=== PATIENT | male | born 1955 | race American Indian/Alaskan Native ===

== ENCOUNTER 2019-11-13 16:07 | Emergency (ER) | payer OTHER, MEDICARE ==
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
[2019-11-13 16:54] VITALS: BP 116/74
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
== END 2019-11-13 17:54 | disposition left against medical advice (07) ==
LOC: ED 16:07
DX: M54.5 Low back pain (principal); V49.49XA Driver injured in collision with other motor vehicles in traffic accident, initial encounter; Y93.89 Activity, other specified; Y92.481 Parking lot as the place of occurrence of the external cause; Y99.8 Other external cause status
CPT/HCPCS: 99282

== ENCOUNTER 2020-02-06 15:15 | Emergency (ER) | payer MEDICARE, OTHER ==
[2020-02-06 15:47] VITALS: BP 128/68
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
== END 2020-02-06 18:14 | disposition left against medical advice (07) ==
LOC: ED 15:15
DX: R36.9 Urethral discharge, unspecified (principal); B35.6 Tinea cruris; M54.6 Pain in thoracic spine; G89.29 Other chronic pain; Z88.8 Allergy status to other drugs, medicaments and biological substances
CPT/HCPCS: 99282

== ENCOUNTER 2020-07-25 17:31 | Emergency (ER) | payer MEDICARE ==
[2020-07-25 17:40] VITALS: BP 150/79
== END 2020-07-25 18:30 | disposition left against medical advice (07) ==
LOC: ED 17:31
DX: R36.9 Urethral discharge, unspecified (principal); L29.1 Pruritus scroti; Z53.21 Procedure and treatment not carried out due to patient leaving prior to being seen by health care provider

== ENCOUNTER 2021-07-05 16:28 | Emergency (ER) | payer MEDICARE ==
[2021-07-05] MEDS ORDERED: dexAMETHasone 20 MG/5 ML VIAL IM ONE (17:40)
--- NOTE | 2021-07-05 17:41 | Emergency Department Report ---
ED Extremity Problem HPI - General Chief complaint: Extremity Injury, Lower Stated complaint: KNEE PAIN Time Seen by Provider: 07/05/21 17:29 Source: patient Mode of arrival: Ambulatory Limitations: Physical Limitation - History of Present Illness Initial comments: 65-year-old male with a past medical history of chronic back pain, and BPH presents to the ER today with complaints of right knee pain. Patient states that has been having pain to the right posterior medial aspect of his knee. He states that he has been having this pain off and on for several months, but last week got worse to the point where he is having difficulty walking on it. He states that it also hurts with full flexion and extension. He reports associated swelling to the knee since . He states that he has been taking his usual dose of oxycodone which he takes for his chronic back pain but is not helping the pain in his knee. He states that he has mentioned his knee pain to his PCP for the past, and he states that he told her she would do an injection in the knee, but he states that the last time he saw her he was not having any pain and so it was not done. He has never seen an audiovisual production specialist for his pain. He denies any PE or DVT in the past nor does he have any risk factors for PE or DVT. He has no known history of any arthritis. He denies any associated chest pain, shortness of breath, redness to the joint, fever or chills or any additional symptoms at this time. Complaint: joint swelling, joint paint -: Gradual, month(s) - Related Data Previous Rx's Medication Instructions Recorded Last Taken Type Diclofenac 1% [Diclofenac 1% 1 applic TP QID #100 gm 07/05/21 Unknown Rx topical gel] methylPREDNISolone [Medrol 4MG 4 mg PO DAILY #1 tab.ds.pk 07/05/21 Unknown Rx DOSEPAK (21 tabs)] Allergies Allergy/AdvReac Type Severity Reaction Status Date / Time ibuprofen Allergy Unknown Verified 07/25/20 17:36 morphine AdvReac Headache Verified 11/13/19 16:24 ED Review of Systems ROS: Stated complaint: KNEE PAIN Other details as noted in HPI Comment: All other systems reviewed and negative Constitutional: denies: chills, fever Eyes: denies: eye pain, eye discharge, vision change ENT: denies: ear pain, throat pain, dental pain, hearing loss, epistaxis, congestion Respiratory: denies: cough, shortness of breath, SOB with exertion, SOB at rest, wheezing Cardiovascular: denies: chest pain, palpitations, dyspnea on exertion, edema, syncope, paroxysmal nocturnal dyspnea Endocrine: no symptoms reported Gastrointestinal: denies: abdominal pain, nausea, vomiting, diarrhea, constipation, hematemesis, melena, hematochezia Genitourinary: denies: urgency, dysuria, frequency, hematuria, discharge Musculoskeletal: joint swelling, arthralgia Skin: denies: rash, lesions, change in color, change in hair/nails, pruritus Neurological: denies: headache, weakness, numbness, paresthesias, confusion, abnormal gait, vertigo Psychiatric: denies: anxiety, depression, auditory hallucinations, visual hallucinations, homicidal thoughts, suicidal thoughts Hematological/Lymphatic: denies: easy bleeding, easy bruising, swollen glands ED Past Medical Hx - Past Medical History Previous Medical History?: Yes Hx Arthritis: Yes Hx Tuberculosis: Yes Additional medical history: Chronic back pain - Surgical History Past Surgical History?: No - Social History Smoking Status: Current Every Day Smoker Substance Use Type: Alcohol - Medications Home Medications: Home Medications Medication Instructions Recorded Confirmed Last Taken Type Diclofenac 1% [Diclofenac 1% 1 applic TP QID #100 gm 07/05/21 Unknown Rx topical gel] methylPREDNISolone [Medrol 4MG 4 mg PO DAILY #1 tab.ds.pk 07/05/21 Unknown Rx DOSEPAK (21 tabs)] ED Physical Exam - General Limitations: Physical Limitation General appearance: alert, in no apparent distress - Head Head exam: Present: atraumatic, normocephalic, normal inspection - Eye Eye exam: Present: normal appearance, PERRL, EOMI Pupils: Present: normal accommodation - Neck Neck exam: Present: normal inspection - Respiratory Respiratory exam: Present: normal lung sounds bilaterally. Absent: respiratory distress, wheezes, rales, rhonchi - Cardiovascular Cardiovascular Exam: Present: regular rate, normal rhythm, normal heart sounds - Expanded Lower Extremity Exam Right Knee exam: Present: full ROM (But there is pain with flexion extension.), tenderness (Posterior and medial aspect of the knee), full knee extension. Absent: swelling, abrasion, laceration, ecchymosis, deformity, crepidus, dislo cation, erythema, effusion Neuro vascular tendon exam: Present: no vascular compromise - Neurological Exam Neurological exam: Present: alert, oriented X3, CN II-XII intact, normal gait - Psychiatric Psychiatric exam: Present: normal affect, normal mood - Skin Skin exam: Present: intact ED Course Vital Signs 07/05/21 07/05/21 17:50 19:33 Temperature 97.9 F Pulse Rate 73 68 Respiratory 14 14 Rate Blood Pressure 120/79 118/76 [Right] O2 Sat by Pulse 98 99 Oximetry ED Medical Decision Making - Radiology Data Radiology results: report reviewed Patient: DEBI DUMONT MR#: [id number] : 1955 Acct:[id number] Age/Sex: 65 / M ADM Date: 07/05/21 Loc: ED Attending Dr: Ordering Physician: TONY ORTIZ Date of Service: 07/05/21 Procedure(s): XR knee 3V RT Accession Number(s): [id number] cc: TONY ORTIZ Fluoro Time In Minutes: RIGHT KNEE 3 VIEWS 1754 INDICATION: KNee pain COMPARISON: None available. FINDINGS: No fractures or dislocations are seen. There appears to be a dkrym-bz-toimkbyr joint effusion. Mild tricompartment degenerative changes are noted. Signer Name: Johnny Olson MD Signed: 07/05/2021 6:15 PM Workstation Name: [id number] Transcribed By: GJ Dictated By: Johnny Olson MD Electronically Authenticated By: Johnny Olson MD Signed Date/Time: 07/05/211814 DD/ 13 TD/TT: - Medical Decision Making X-ray of the right knee shows tricompartment degenerative changes with small to moderate amount of effusion. Physical exam does not suggest a septic joint, DVT, compartment syndrome, acute arterial occlusion or any other emergent conditions warranting additional testing, specialist consult or admission at this time. Discussed x-ray results with patient. Jesus wrap applied to his knee. Patient already on oxycodone, and therefore will add Medrol Dosepak and topical diclofenac gel that he can use to help with inflammation and pain. Most importantly patient was instructed to follow-up with his primary care doctor and or audiovisual production specialist. Patient expressed understanding for instructions and agree with plan. Patient was stable at time of discharge. Critical care attestation.: If time is entered above; I have spent that time in minutes in the direct care of this critically ill patient, excluding procedure time. ED Disposition Clinical Impression: Right knee DJD, Knee effusion, right Disposition: 01 HOME / SELF CARE / HOMELESS Is pt being admited?: No Does the pt Need Aspirin: No Condition: Stable Instructions: Knee Effusion, Fvni-eo-Gkzx, Arthritis Additional Instructions: I recommend that you take the Medrol Dosepak as prescribed, take the Tylenol as prescribed and use the Voltaren gel as prescribed. Continue taking your Medrol Dosepak. Use the Jesus wrap as discussed. You can follow-up with the PCP or the audiovisual production specialist listed on discharge instructions. Return to the ER if your symptoms changes or worsens in any way. Prescriptions: Diclofenac 1% [Diclofenac 1% topical gel] 1 applic TP QID #100 gm methylPREDNISolone [Medrol 4MG DOSEPAK (21 tabs)] 4 mg PO DAILY #1 tab.ds.pk Referrals: LOVE SOSA MD [Staff Physician] - 3-5 Days Time of Disposition: 19:16 Print Language: ARABIC
--- NOTE | 2021-07-05 18:19 | XRay Report ---
RIGHT KNEE 3 VIEWS 1754 INDICATION: KNee pain COMPARISON: None available. FINDINGS: No fractures or dislocations are seen. There appears to be a ijzkg-qk-bltrpclu joint effusi on. Mild tricompartment degenerative changes are noted. Signer Name: Johnny Olson MD Signed: 07/05/2021 6:15 PM Workstation Name: [id number]
[2021-07-05 19:50] VITALS: BP 118/76
== END 2021-07-05 19:33 | disposition home or self-care (01) ==
LOC: ED 16:28
DX: M17.11 Unilateral primary osteoarthritis, right knee (principal); M25.461 Effusion, right knee; N40.0 Benign prostatic hyperplasia without lower urinary tract symptoms; M19.90 Unspecified osteoarthritis, unspecified site; G89.29 Other chronic pain; M54.9 Dorsalgia, unspecified; F17.200 Nicotine dependence, unspecified, uncomplicated; Z88.8 Allergy status to other drugs, medicaments and biological substances; Z88.5 Allergy status to narcotic agent
CPT/HCPCS: 73562; 96372; 99283; J1100

== ENCOUNTER 2021-07-25 18:25 | Emergency (ER) | payer MEDICARE ==
[2021-07-25 19:18] VITALS: BP 121/72
[2021-07-25] MEDS ORDERED: ACETAMINOPHEN 500 MG TAB PO ONE (19:51)
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
--- NOTE | 2021-07-25 20:37 | XRay Report ---
Lumbar spine, 2 views HISTORY: Low back pain COMPARISON: None FINDINGS: There is grade 1 anterolisthesis of L4 on L5 related to chronic pars defects at L4. Severe disc space height loss at L4-L5, mild to moderate at other levels. Vertebral body heights are intact. There is no evidence of acute fracture. Severe lower lumbar facet arthropathy is noted. Soft tissues are unremarkable. IMPRESSION: 1. No acute process. 2. Moderately severe lower lumbar spondylosis with spondylolysis and listhesis at L4-L5. Signer Name: Aurelio Campbell MD Signed: 07/25/2021 8:32 PM Workstation Name: [id number]
== END 2021-07-25 21:21 | disposition home or self-care (01) ==
LOC: ED 18:25
DX: S16.1XXA Strain of muscle, fascia and tendon at neck level, initial encounter (principal); S39.012A Strain of muscle, fascia and tendon of lower back, initial encounter; M19.90 Unspecified osteoarthritis, unspecified site; G89.29 Other chronic pain; F17.200 Nicotine dependence, unspecified, uncomplicated; Z72.89 Other problems related to lifestyle; Z88.6 Allergy status to analgesic agent; Z88.5 Allergy status to narcotic agent; Z79.899 Other long term (current) drug therapy; V87.7XXA Person injured in collision between other specified motor vehicles (traffic), initial encounter; Y93.89 Activity, other specified; Y92.488 Other paved roadways as the place of occurrence of the external cause; Y99.8 Other external cause status
CPT/HCPCS: 72040; 72100; 99283

== ENCOUNTER → 2021-09-30 | Emergency (ER) | payer MEDICARE, OTHER | LOC: ED 12:40 | DX: H57.10 Ocular pain, unspecified eye (principal); Z53.21 Procedure and treatment not carried out due to patient leaving prior to being seen by health care provider ==

== ENCOUNTER 2022-05-20 18:09 | Emergency (ER) | payer MEDICARE ==
--- NOTE | 2022-05-20 21:40 | XRay Report ---
CHEST 1 VIEW 05/20/2022 8:24 PM INDICATION / CLINICAL INFORMATION: Chest Pain. COMPARISON: None available. FINDINGS: SUPPORT DEVICES: None. HEART / MEDIASTINUM: No significant abnormality. LUNGS / PLEURA: No significant pulmonary or pleural abnormality. No pneumothorax. ADDITIONAL FINDINGS: There are healed left third and fourth rib fractures. IMPRESSION: 1. No acute findings. Signer Name: Neri Pride MD Signed: 05/20/2022 9:36 PM Workstation Name: [email or web address][id number]
[2022-05-20 22:03] LABS: Basophils % (Auto) 0.7 % (0.0-1.8); Eosinophils % (Auto) 0.6 % (0.0-4.3); Hematocrit 40.1 % (35.5-45.6); Hemoglobin 13.4 gm/dl (11.8-15.2); Lymphocytes # (Auto) 1.2 K/mm3 (1.2-5.4); Lymphocytes % (Auto) 18.4 % (13.4-35.0); Mean Corpuscular HGB Conc 33 % (32-34); Mean Corpuscular Volume 86 fl (84-94); Monocytes # (Auto) 0.4 K/mm3 (0.0-0.8); Monocytes % (Auto) 5.9 % (0.0-7.3); Platelet Count 188 K/mm3 (140-440); Red Blood Count 4.67 M/mm3 (3.65-5.03); Red Cell Distribution Width 13.9 % (13.2-15.2)
--- NOTE | 2022-05-20 22:05 | Emergency Department Report ---
ED Chest Pain HPI - General Chief Complaint: Chest Pain Stated Complaint: CHEST PAIN Time Seen by Provider: 05/20/22 21:23 Source: patient Mode of arrival: Wheelchair Limitations: No Limitations - History of Present Illness Initial Comments: 66-year-old male who presents with intermittent chest pain that has been going on for about a week progressively getting worse. Patient described chest pain as pressure in his left side of his chest. Patient also have history of BPH and reports not being able to urinate since morning about 12 hours ago. When asked why he was just coming to the hospital he said he thought he was going to resolves itself. He denies any fever or chills. No cough or palpitation reported. No other modifying or associated factors reported. MD Complaint: chest pain, other (urinary obstruction) Severity scale (0 -10): 6 - Related Data Previous Rx's Medication Instructions Recorded Last Taken Type Diclofenac 1% [Diclofenac 1% 1 applic TP QID #100 gm 07/05/21 Unknown Rx topical gel] methylPREDNISolone [Medrol 4MG 4 mg PO DAILY #1 tab.ds.pk 07/05/21 Unknown Rx DOSEPAK (21 tabs)] Acetaminophen [Arthritis Pain 650 mg PO QID PRN #30 tablet.er 07/25/21 Unknown Rx Reliever] Capsaicin 0.075% [Zostrix Hp 1 applicatio TP TID PRN #1 tube 07/25/21 Unknown Rx 0.075%] tiZANidine [Zanaflex 4mg TAB] 4 mg PO BID PRN #30 tablet 07/25/21 Unknown Rx Allergies Allergy/AdvReac Type Severity Reaction Status Date / Time ibuprofen Allergy Unknown Verified 07/25/20 17:36 morphine AdvReac Headache Verified 11/13/19 16:24 Heart Score - HEART Score History: Slightly suspicious EKG: Normal Age: > 65 Risk factors: 1-2 risk factors Troponin: < normal limit HEART Score: 3 - EKG Read Time Time EKG Completed: 19:16 EKG Read Time: 19:22 - Critical Actions Critical Actions: 0-3 pts:0.9-1.7%risk of adverse cardiac event.Candidate for discharge ED Review of Systems ROS: Stated complaint: CHEST PAIN Other details as noted in HPI Comment: All other systems reviewed and negative Cardiovascular: chest pain Genitourinary: dysuria, other (anuria ) ED Past Medical Hx - Past Medical History Hx Arthritis: Yes Hx Tuberculosis: Yes Additional medical history: Chronic back pain - Social History Smoking Status: Current Every Day Smoker Substance Use Type: Alcohol - Medications Home Medications: Home Medications Medication Instructions Recorded Confirmed Last Taken Type Diclofenac 1% [Diclofenac 1% 1 applic TP QID #100 gm 07/05/21 Unknown Rx topical gel] methylPREDNISolone [Medrol 4MG 4 mg PO DAILY #1 tab.ds.pk 07/05/21 Unknown Rx DOSEPAK (21 tabs)] Acetaminophen [Arthritis Pain 650 mg PO QID PRN #30 tablet.er 07/25/21 Unknown Rx Reliever] Capsaicin 0.075% [Zostrix Hp 1 applicatio TP TID PRN #1 tube 07/25/21 Unknown Rx 0.075%] tiZANidine [Zanaflex 4mg TAB] 4 mg PO BID PRN #30 tablet 07/25/21 Unknown Rx ED Physical Exam - General Limitations: No Limitations General appearance: alert, in distress (due to not been able to urinate x last 12 hours ) - Head Head exam: Present: normal inspection - Eye Eye exam: Present: normal appearance Pupils: Present: normal accommodation - ENT ENT exam: Present: normal exam, normal orophraynx - Neck Neck exam: Present: normal inspection, full ROM. Absent: tenderness - Respiratory Respiratory exam: Present: normal lung sounds bilaterally. Absent: respiratory distress, accessory muscle use - Cardiovascular Cardiovascular Exam: Present: regular rate, normal rhythm, normal heart sounds - GI/Abdominal GI/Abdominal exam: Present: soft, tenderness (suprapubic tenderness and distension ) - Extremities Exam Extremities exam: Present: normal inspection. Absent: pedal edema - Back Exam Back exam: Present: normal inspection. Absent: tenderness - Neurological Exam Neurological exam: Present: alert, oriented X3 - Psychiatric Psychiatric exam: Present: agitated (due to urinary obstruction ) - Skin Skin exam: Present: warm, normal color ED Course Vital Signs 05/20/22 05/20/22 05/20/22 19:03 19:40 19:45 Temperature 97.4 F L Pulse Rate 71 58 L 60 Respiratory 18 Rate Blood Pressure 132/75 140/75 Blood Pressure [Left] O2 Sat by Pulse 100 99 97 Oximetry 05/20/22 05/20/22 05/20/22 20:01 20:15 20:31 Temperature Pulse Rate 65 59 L 58 L Respiratory 21 28 H 13 Rate Blood Pressure 140/77 140/77 140/81 Blood Pressure [Left] O2 Sat by Pulse 93 97 90 Oximetry 05/20/22 05/20/22 05/20/22 20:45 21:01 21:15 Temperature Pulse Rate 69 73 58 L Respiratory 12 12 12 Rate Blood Pressure 143/81 135/98 144/91 Blood Pressure [Left] O2 Sat by Pulse 95 91 94 Oximetry 05/20/22 05/20/22 05/20/22 21:24 21:31 21:45 Temperature 97.9 F Pulse Rate 53 L 64 Respiratory 18 13 14 Rate Blood Pressure 145/76 157/87 Blood Pressure [Left] O2 Sat by Pulse 97 91 96 Oximetry 05/20/22 05/20/22 05/20/22 22:01 22:15 22:31 Temperature Pulse Rate 53 L 63 87 Respiratory 16 17 19 Rate Blood Pressure 150/83 141/81 132/95 Blood Pressure [Left] O2 Sat by Pulse 88 97 Oximetry 05/20/22 05/20/22 05/20/22 22:45 23:00 23:16 Temperature Pulse Rate 61 65 61 Respiratory 20 16 17 Rate Blood Pressure 128/85 123/72 Blood Pressure [Left] O2 Sat by Pulse 97 97 97 Oximetry 05/20/22 05/20/22 05/20/22 23:30 23:41 23:46 Temperature Pulse Rate 58 L 66 57 L Respiratory 14 13 12 Rate Blood Pressure 131/72 128/62 121/71 Blood Pressure [Left] O2 Sat by Pulse 97 99 93 Oximetry 05/20/22 05/21/22 05/21/22 23:54 00:00 00:16 Temperature 97.9 F Pulse Rate 70 75 77 Respiratory 15 19 21 Rate Blood Pressure 128/71 128/62 125/77 Blood Pressure 121/71 [Left] O2 Sat by Pulse 98 97 97 Oximetry 05/21/22 05/21/22 05/21/22 00:30 00:46 01:00 Temperature Pulse Rate 74 64 76 Respiratory 18 16 18 Rate Blood Pressure 143/98 143/98 135/83 Blood Pressure [Left] O2 Sat by Pulse 90 99 93 Oximetry 05/21/22 05/21/22 05/21/22 01:16 01:30 01:46 Temperature Pulse Rate 66 68 73 Respiratory 12 13 17 Rate Blood Pressure 127/73 116/69 119/71 Blood Pressure [Left] O2 Sat by Pulse 91 98 Oximetry 05/21/22 01:50 Temperature 97.7 F Pulse Rate Respiratory Rate Blood Pressure Blood Pressure [Left] O2 Sat by Pulse Oximetry - Reevaluation(s) Reevaluation #1: 05/21/22 02:19 Patient reports instant relief after a Desai catheter was placed and return 1100 cc urine output--patient labs reviewed and noted to be within normal limit including hemoglobin and hematocrit-- This patient EKG and troponin was unremarkable as well patient reassured to call and follow-up with 1 is urology, 2 and cardiology with primary doctor. LUCIANO score - Luciano Score Age > 65: (1) Yes Aspirin use within the Past 7 Days: (0) No 3 or more CAD Risk Factors: (0) No 2 or more Angina events in past 24 hrs: (1) Yes Known CAD with more than 50% Stenosis: (0) No Elevated Cardiac Markers: (0) No ST Deviation Greater than 0.5mm: (0) No LUCIANO Score: 2 ED Medical Decision Making - Lab Data Result diagrams: 05/20/22 21:46 05/20/22 21:46 - EKG Data -: EKG Interpreted by Pr EKG shows normal: sinus rhythm Rate: normal - EKG Data 05/20/22 22:07 EKG noted with normal sinus rhythm at a rate of 63 bpm, with atrial premature complexes with normal QT and no ST elevation or depression in this ECG. - Medical Decision Making Here with chest pain/pressure--differential could be but not limited to myocardial infarction, pulmonary embolism, costochondritis, anxiety, gastritis, GERD, pancreatitis, and or pyelonephritis--in order to rule out the above-- so will go ahead and order routine cardiopulmonary work-up that include troponin, EKG, chest x-ray, BNP, CKMB, and CBC, CMP and urinalysis for any correctable infectious process or electrolyte abnormality as a cause. Also noted with suprapubic tenderness with likely urinary obstruction considering his history of BPH currently on finasteride--will go ahead and attempt to place desai catheter and have patient follow up with his urologist. This discomfort could be contributing to his chest pain as well-- Initial troponin noted to be unremarkable and ECG without any ST elevation or depression--we will continue to monitor Critical care attestation.: If time is entered above; I have spent that time in minutes in the direct care of this critically ill patient, excluding procedure time. ED Disposition Clinical Impression: Urinary retention due to benign prostatic hyperplasia BPH (benign prostatic hyperplasia) Qualifiers: Lower urinary tract symptom presence: symptoms present Lower urinary tract symptom detail: urinary retention Qualified Code(s): N40.1 - Benign prostatic hy perplasia with lower urinary tract symptoms Chest pain Qualifiers: Chest pain type: unspecified Qualified Code(s): R07.9 - Chest pain, unspecified Disposition: 01 HOME / SELF CARE / HOMELESS Is pt being admited?: No Does the pt Need Aspirin: No Condition: Stable Instructions: Nonspecific Chest Pain, Adult, Benign Prostatic Hyperplasia, Nonspecific Chest Pain, Adult, [id number] Additional Instructions: It is very important that you call and follow-up with your urology for years assessment and treatment Please do not hesitate to call or return to emergency if your symptoms worsen Time of Disposition: 02:21
[2022-05-20 22:15] LABS: INR 0.9 (0.87-1.13)
[2022-05-20 22:16] LABS: Partial Thromboplastin Time 29.8 Sec. (24.2-36.6)
[2022-05-20 22:20] LABS: Alanine Aminotransferase 11 units/L (7-56); Albumin 4.7 g/dL (3.9-5); BUN/Creatinine Ratio 13; Blood Urea Nitrogen 10 mg/dL (9-20); Calcium 8.9 mg/dL (8.4-10.2); Hemolysis Index 7
[2022-05-20] MEDS ORDERED: LIDOCAINE PF 100 MG/5 ML (CARDIAC SYRINGE) IV ONE (22:30)
[2022-05-20] MEDS ORDERED: LIDOCAINE 2% UROJECT 10 ML JELLY UR ONE (22:46)
[2022-05-21] MEDS ORDERED: fentaNYL 100 MCG/2 ML INJ IV ONE (00:11)
[2022-05-21] MEDS ORDERED: ONDANSETRON 4 MG/2 ML INJ IV ONE (00:12)
[2022-05-21 01:50] VITALS: BP 119/71
[2022-05-21 02:01] LABS: Bacteria,Urine 1+ /HPF (Negative); Mucus,Urine FEW /HPF; WBC,Urine < 1.0 /HPF (0.0-6.0)
[2022-05-21 02:05] LABS: Color,Urine Straw (Yellow)
--- NOTE | 2022-05-21 10:36 | Electrocardiograph Report ---
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
== END 2022-05-21 02:38 | disposition home or self-care (01) ==
LOC: ED 18:09
DX: N40.1 Benign prostatic hyperplasia with lower urinary tract symptoms (principal); R07.9 Chest pain, unspecified; R33.9 Retention of urine, unspecified
CPT/HCPCS: 36415; 71045; 80053; 81001; 83690; 84484; 85025; 85610; 85730; 93005; 96374; 96375; 99284; J2001; J2405; J3010

== ENCOUNTER 2022-05-21 10:47 | Emergency (ER) | payer MEDICARE ==
[2022-05-21 12:12] LABS: Alanine Aminotransferase 11 units/L (7-56); Albumin 4.5 g/dL (3.9-5); BUN/Creatinine Ratio 9; Blood Urea Nitrogen 7 mg/dL (9-20); Calcium 8.9 mg/dL (8.4-10.2); Hemolysis Index 5
--- NOTE | 2022-05-21 12:19 | XRay Report ---
CHEST 2 VIEWS INDICATION / CLINICAL INFORMATION: chest pain. COMPARISON: 05/20/2022 FINDINGS: SUPPORT DEVICES: None. HEART / MEDIASTINUM: No significant abnormality. LUNGS / PLEURA: No significant pulmonary or pleural abnormality. No pneumothorax. ADDITIONAL FINDINGS: No significant additional findings. IMPRESSION: 1. No acute findings. Signer Name: Curly Johnson Jr, MD Signed: 05/21/2022 12:15 PM Workstation Name: [id number]
[2022-05-21 12:22] LABS: Hematocrit 39.6 % (35.5-45.6); Hemoglobin 12.9 gm/dl (11.8-15.2); Mean Corpuscular HGB Conc 33 % (32-34); Mean Corpuscular Volume 86 fl (84-94); Platelet Count 196 K/mm3 (140-440); Red Cell Distribution Width 14.1 % (13.2-15.2)
[2022-05-21 13:33] VITALS: BP 124/72
--- NOTE | 2022-05-21 13:43 | Emergency Department Report ---
ED General Adult HPI - General Chief complaint: Chest Pain Stated complaint: CHEST PAIN Time Seen by Provider: 05/21/22 13:22 Source: patient Mode of arrival: Ambulatory Limitations: No Limitations - History of Present Illness Initial comments: The patient presents to the emergency department with a chief complaint of difficulty urinating. Patient states he has not urinated since leaving the hospital earlier this morning when he was straight cath for urinary retention. Patient states he has made an appointment with use urologist but is here because he has not been able to urinate since leaving the emergency department. Patient denies chest pain, shortness breath, headache -: Sudden Location: abdomen Severity scale (0 -10): 10 Quality: crushing Consistency: constant Improves with: none Worsens with: none Associated Symptoms: denies other symptoms Treatments Prior to Arrival: none - Related Data Previous Rx's Medication Instructions Recorded Last Taken Type Diclofenac 1% [Diclofenac 1% 1 applic TP QID #100 gm 07/05/21 Unknown Rx topical gel] methylPREDNISolone [Medrol 4MG 4 mg PO DAILY #1 tab.ds.pk 07/05/21 Unknown Rx DOSEPAK (21 tabs)] Acetaminophen [Arthritis Pain 650 mg PO QID PRN #30 tablet.er 07/25/21 Unknown Rx Reliever] Capsaicin 0.075% [Zostrix Hp 1 applicatio TP TID PRN #1 tube 07/25/21 Unknown Rx 0.075%] tiZANidine [Zanaflex 4mg TAB] 4 mg PO BID PRN #30 tablet 07/25/21 Unknown Rx Tamsulosin [Flomax] 0.4 mg PO QDAY #30 cap 05/21/22 Unknown Rx Allergies Allergy/AdvReac Type Severity Reaction Status Date / Time ibuprofen Allergy Unknown Verified 05/21/22 11:06 morphine AdvReac Headache Verified 05/21/22 11:06 ED Review of Systems ROS: Stated complaint: CHEST PAIN Other details as noted in HPI Constitutional: denies: chills, fever Eyes: denies: eye pain, eye discharge, vision change ENT: denies: ear pain, throat pain Respiratory: denies: cough, shortness of breath, wheezing Cardiovascular: denies: chest pain, palpitations Endocrine: no symptoms reported Gastrointestinal: denies: abdominal pain, nausea, diarrhea Genitourinary: other (Urinary retention). denies: urgency, dysuria Musculoskeletal: denies: back pain, joint swelling, arthralgia Skin: denies: rash, lesions Neurological: denies: headache, weakness, paresthesias Psychiatric: denies: anxiety, depression Hematological/Lymphatic: denies: easy bleeding, easy bruising ED Past Medical Hx - Past Medical History Hx Arthritis: Yes Hx Tuberculosis: Yes Additional medical history: Chronic back pain - Social History Smoking Status: Current Every Day Smoker Substance Use Type: Alcohol - Medications Home Medications: Home Medications Medication Instructions Recorded Confirmed Last Taken Type Diclofenac 1% [Diclofenac 1% 1 applic TP QID #100 gm 07/05/21 Unknown Rx topical gel] methylPREDNISolone [Medrol 4MG 4 mg PO DAILY #1 tab.ds.pk 07/05/21 Unknown Rx DOSEPAK (21 tabs)] Acetaminophen [Arthritis Pain 650 mg PO QID PRN #30 tablet.er 07/25/21 Unknown Rx Reliever] Capsaicin 0.075% [Zostrix Hp 1 applicatio TP TID PRN #1 tube 07/25/21 Unknown Rx 0.075%] tiZANidine [Zanaflex 4mg TAB] 4 mg PO BID PRN #30 tablet 07/25/21 Unknown Rx Tamsulosin [Flomax] 0.4 mg PO QDAY #30 cap 05/21/22 Unknown Rx ED Physical Exam - General Limitations: No Limitations General appearance: alert, in no apparent distress - Head Head exam: Present: atraumatic, normocephalic - Eye Eye exam: Present: normal appearance, PERRL - ENT ENT exam: Present: mucous membranes moist - Neck Neck exam: Present: normal inspection - Respiratory Respiratory exam: Present: normal lung sounds bilaterally. Absent: respiratory distress - Cardiovascular Cardiovascular Exam: Present: regular rate, normal rhythm. Absent: systolic murmur, diastolic murmur, rubs, gallop - GI/Abdominal GI/Abdominal exam: Present: soft, normal bowel sounds, other (Supra pubic region is tender to palpation with distention of of bladder). Absent: distended - Rectal Rectal exam: Present: deferred - Extremities Exam Extremities exam: Present: normal inspection - Back Exam Back exam: Present: normal inspection - Neurological Exam Neurological exam: Present: alert, oriented X3 - Psychiatric Psychiatric exam: Present: normal affect, normal mood - Skin Skin exam: Present: warm, dry, intact, normal color. Absent: rash ED Course Vital Signs 05/21/22 05/21/22 11:04 13:28 Temperature 98.5 F 98.2 F Pulse Rate 78 99 H Respiratory 18 14 Rate Blood Pressure 113/67 124/72 [Left] O2 Sat by Pulse 99 100 Oximetry ED Medical Decision Making - Lab Data Result diagrams: 05/21/22 11:25 05/21/22 11:25 Lab Results 05/21/22 05/21/22 Range/Units 11:25 11:25 WBC 4.6 (4.5-11.0) K/mm3 RBC 4.60 (3.65-5.03) M/mm3 Hgb 12.9 (11.8-15.2) gm/dl Hct 39.6 (35.5-45.6) % MCV 86 (84-94) fl MCH 28 (28-32) pg MCHC 33 (32-34) % RDW 14.1 (13.2-15.2) % Plt Count 196 (140-440) K/mm3 Sodium 138 (137-145) mmol/L Potassium 3.8 (3.6-5.0) mmol/L Chloride 102.7 (98-107) mmol/L Carbon Dioxide 28 (22-30) mmol/L Anion Gap 11 mmol/L BUN 7 L (9-20) mg/dL Creatinine 0.8 (0.8-1.3) mg/dL Estimated GFR > 60 ml/min BUN/Creatinine Ratio 9 % Glucose 111 H (75-100) mg/dL Calcium 8.9 (8.4-10.2) mg/dL Total Bilirubin 0.50 (0.1-1.2) mg/dL AST 17 (5-40) units/L ALT 11 (7-56) units/L Alkaline Phosphatase 75 (35-129) units/L Troponin T < 0.010 (0.00-0.029) ng/mL Total Protein 6.9 (6.3-8.2) g/dL Albumin 4.5 (3.9-5) g/dL Albumin/Globulin Ratio 1.9 % - Medical Decision Making Patient had Castano placed with 1000 cc of urine being displaced Patient instructed to keep his urology appointment this upcoming Wednesday Critical care attestation.: If time is entered above; I have spent that time in minutes in the direct care of this critically ill patient, excluding procedure time. ED Disposition Clinical Impression: Urinary retention Disposition: 01 HOME / SELF CARE / HOMELESS Is pt being admited?: No Does the pt Need Aspirin: No Condition: Stable Additional Instructions: return if worse Prescriptions: Tamsulosin [Flomax] 0.4 mg PO QDAY #30 cap Referrals: ELLY ALMEIDA MD [Staff Physician] - 3-5 Days Time of Disposition: 14:15
--- NOTE | 2022-05-22 10:52 | Electrocardiograph Report ---
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
== END 2022-05-21 14:25 | disposition home or self-care (01) ==
LOC: ED 10:47
DX: R33.9 Retention of urine, unspecified (principal); M19.90 Unspecified osteoarthritis, unspecified site; A15.9 Respiratory tuberculosis unspecified; F17.200 Nicotine dependence, unspecified, uncomplicated; Z88.6 Allergy status to analgesic agent
CPT/HCPCS: 36415; 51702; 71045; 71046; 80053; 81001; 83690; 84484; 85025; 85027; 85610; 85730; 93005; 96374; 96375; 99283; 99284; J2001; J2405; J3010